=== PATIENT | male | born 1960 | race Caucasian/White ===

== ENCOUNTER 2017-02-25 08:58 | Emergency (ER) | payer BC ==
[~2017-02-25] VITALS: Ht 177.8 cm; Wt 82.0 kg
[~2017-02-25 08:58] MED LIST: CLIN-72 PO; TRAM100T2 PO
[2017-02-25 09:01] VITALS: Ht 177.8 cm; Wt 82.0 kg
--- NOTE | 2017-02-25 10:00 | RADRPT ---
PROCEDURE: CT Brain without contrast. CLINICAL INDICATION: Pain, headache TECHNIQUE: Routine CT scan of the brain was performed on a high resolution multi detector scanner without intravenous contrast. One or more of the following dose reduction techniques were used: Auto mated exposure control; Adjustment of the mA and/or kV according to patient size; Use of iterative r econstruction technique. CTDI = 44 mGy. DLP = 720 mGy-cm. COMPARISON: No prior relevant examinations are available for comparison. FINDINGS: Hemorrhage: No evidence of intracranial hemorrhage. Acute ischemic changes: No evidence of acute ischemic changes. Mass effect: None. Parenchymal volume: Within normal limits for age. Ventricular system: Concordant with parenchymal volume. Chronic changes: Parenchymal attenuation is within normal limits. Extracranial soft tissues: Unremarkable. Calvarium: No fractures. Paranasal sinuses: Visualized paranasal sinuses are clear. Mastoid air cells: Visualized mastoid air cells are clear. IMPRESSION: No acute intracranial abnormalities. Normal appearance of the brain parenchyma. RPTAT: AADD .Yao Narayanan MD, MD Date Time Electronically viewed and signed by .Yao Narayanan MD, MD on 02/25/2017 10:00 .B/
--- NOTE | 2017-02-25 12:56 | RADRPT ---
PROCEDURE: US Soft Tissue. CLINICAL INDICATION: Abnormal vision and eye pain. Evaluate for retinal detachment. TECHNIQUE: Berkowitz scale sonographic imaging of the right and left eyes was performed. COMPARISON: CT brain 02/25/2017. FINDINGS: The optic globes are normal in contour. Normal clear vitreous is seen, bilaterally. There are no a bnormal echoes. There is no displacement of membranes. The lens is normal, bilaterally. IMPRESSION: Normal bilateral ocular ultrasound. No evidence of retinal detachment. Ophthalmologic follow-up ad vised, as clinically indicated. RPTAT: HLST .Hoda Palacio MD, MD Date Time Electronically viewed and signed by .Hoda Palacio MD, MD on 02/25/2017 12:55 .T/
[2017-02-25] MEDS ORDERED: FIORICET PO (13:14)
[2017-02-25 13:46] VITALS: BP 126/76; PULSE 46; RESP 18
--- NOTE | 2017-02-25 15:20 | ERD ---
ER Documentation Chief Complaint Date/Time DATE: 02/25/17 TIME: 15:16 Chief Complaint RIGHT SIDED HEADACHE FOR 3 MONTHS WORSE X 10 DAYS, NO NEURO DEFICITS HPI 57-year-old male patient with no significant past medical history presents the ED complaining of a right-sided headache that is constant for the last 10 days. Patient describes the pain as sharp and rates it a 8 out of 10. States that he feels that he has some slight blurred vision. Reports that he has right- sided eye pain. Denies any lacrimation or rhinorrhea. Denies any trauma or loss of consciousness. Denies any seizures. Denies any weakness, numbness or tingling, chest pain, shortness of breath, nausea, vomiting, photophobia, phonophobia. ROS All systems reviewed and are negative except as per history of present illness. Medications Home Meds Active Scripts Acetamin/Butalbital/Caffeine* (Fioricet*) [id number] Tab, 1 TAB PO Q6H Y for PAIN, #30 TAB Prov:PAYTON VELEZ PA-C 02/25/17 Reported Medications Tramadol Hcl* (Tramadol* ER) 100 Mg Tab.er.24h, 50 MG PO Q8 Y 06/24/13 Clindamycin Hcl* (Clindamycin Hcl*) 150 Mg Capsule, 150 MG PO QID 06/24/13 Allergies Allergies: Coded Allergies: No Known Allergy (Unverified , 06/24/13) PMhx/Soc Medical and Surgical Hx: pt denies Medical Hx, pt denies Surgical Hx Hx Alcohol Use: No Hx Substance Use: No Hx Tobacco Use: No Smoking Status: Never smoker Physical Exam Vitals Vital Signs Date Time Temp Pulse Resp B/P Pulse Ox O2 Delivery O2 Flow Rate FiO2 02/25/17 13:46 46 18 126/76 99 Room Air 02/25/17 09:01 97.6 71 18 135/84 98 Physical Exam Const: [id number], well-nourished. In no acute distress. Head: Atraumatic, normocephalic Eyes: Normal Conjunctiva without injection. No purulent discharge. PERRLA. EOMI ENT: Normal external ear. Ear canal without erythema. Tympanic membrane pearly berkowitz without effusion or bulging. Nasal canal clear with normal turbinates. Moist oropharynx without tonsillar exudates. Non-erythematous pharynx. Uvula midline. No drooling. No trismus. Neck: No cervical midline tenderness. Full range of motion. No meningismus. No cervical lymphadenopathy. No JVD. Resp: Clear to auscultation bilaterally. No wheezing, rhonchi, rales, or crackles. No accessory muscle use. No retractions. Cardio: Regular rate and rhythm. No murmurs, rubs or gallops. Abd: Soft, non tender, non distended. Normal bowel sounds. No palpable masses. No rebound tenderness. No guarding. Negative McBurney's Point. Negative Desai's Sign. Skin: Normal skin turgor. No petechiae or rashes Back: No midline tenderness. No CVA tenderness. Ext: No cyanosis, or edema. Distal pulses intact bilaterally. Neur: Awake and alert. Normal gait. Normal coordination. Cranial Nerves II- VII intact. Normal finger to nose. Muscle strength 5/5. Sensation intact. Psych: Normal Mood and Affect Procedures/MDM This is a 57-year-old male patient with no significant past medical history presents the ED complaining of a right-sided headache that has been intermittently going on for the last 3 months and worse in the last 10 days associated with right eye pain and blurred vision. Patient is afebrile and nontoxic-appearing. Patient has normal vital signs. A CT of the brain without contrast, ultrasound of the soft tissue of the bilateral eyes, visual acuity was ordered to further evaluate patient. Patient's visual acuity was right 20/ 70, left 20/50, bilateral 20/70. CT of the brain shows no evidence of intracranial bleed. Low suspicion for seizures, subarachnoid hemorrhage, meningitis, TIA, stroke, subarachnoid hemorrhage, hematoma, epidural hematoma, or other emergent conditions. Soft tissue of the bilateral eyes shows no evidence of retinal detachment. A Landen-Pen was offered to be performed here in the ED however patient opted out and wanted to follow-up with an field observer tomorrow. He is strictly instructed to follow-up within 24 hours. PROCEDURE: CT Brain without contrast. CLINICAL INDICATION: Pain, headache TECHNIQUE: Routine CT scan of the brain was performed on a high resolution multi detector scanner without intravenous contrast. One or more of the following dose reduction techniques were used: Automated exposure control; Adjustment of the mA and/or kV according to patient size; Use of iterative reconstruction technique. CTDI = 44 mGy. DLP = 720 mGy-cm. COMPARISON: No prior relevant examinations are available for comparison. FINDINGS: Hemorrhage: No evidence of intracranial hemorrhage. Acute ischemic changes: No evidence of acute ischemic changes. Mass effect: None. Parenchymal volume: Within normal limits for age. Ventricular system: Concordant with parenchymal volume. Chronic changes: Parenchymal attenuation is within normal limits. Extracranial soft tissues: Unremarkable. Calvarium: No fractures. Paranasal sinuses: Visualized paranasal sinuses are clear. Mastoid air cells: Visualized mastoid air cells are clear. IMPRESSION: No acute intracranial abnormalities. Normal appearance of the brain parenchyma. PROCEDURE: US Soft Tissue. CLINICAL INDICATION: Abnormal vision and eye pain. Evaluate for retinal detachment. TECHNIQUE: Berkowitz scale sonographic imaging of the right and left eyes was performed. COMPARISON: CT brain 02/25/2017. FINDINGS: The optic globes are normal in contour. Normal clear vitreous is seen, bilaterally. There are no abnormal echoes. There is no displacement of membranes. The lens is normal, bilaterally. IMPRESSION: Normal bilateral ocular ultrasound. No evidence of retinal detachment. Ophthalmologic follow-up advised, as clinically indicated. EKG reviewed and interpreted by Dr. Bardales Rate/Rhythm: [46 bpm, Normal Sinus Rhythm] No ectopy, no ST elevations, normal axis. QRS, ST, T-waves: [No changes consistent w/ acute ischemia] Impression: [No evidence of ischemia or arrhythmia] Patient has bradycardia noted upon discharge, therefore an EKG was ordered. Patient does not have any chest pain or current dizziness. Low suspicion for symptomatic bradycardia, acute myocardial infarction, pneumothorax, pneumonia, cardiac tamponade, pulmonary embolism, AAA, aortic dissection, Boerhaave's syndrome, cardiac dysrhythmias,meningitis, intracranial bleed, seizure, stroke, TIA or other emergent conditions. Patient's ocular symptoms have stabilized while they have been evaluated in the department and are appropriate for outpatient work up. Low suspicion for ruptured globe, retinal detachment, periorbital cellulitis, acute angle closure glaucoma, deep space infection, iritis, traumatic hyphema, conjunctivitis, subconjunctival hemorrhage, corneal abrasion, corneal ulcer, pterygium, hypopyon, blepharitis, hordeolum, chalazion , or other emergent conditions. Strictly instructed patient to follow up with an field observer within 24 hours and primary care physician for a referral to neurologist, drill doctor. Instructed patient to return to the ED for any worsening symptoms. Patient is hemodynamically stable. Patient's questions were answered. Patient understood and agreed with discharge plan. Departure Diagnosis: Primary Impression: Headache Headache type: unspecified Headache chronicity pattern: unspecified pattern Intractability: not intractable Qualified Code: R51 - Nonintractable headache, unspecified chronicity pattern, unspecified headache type Condition: Stable Patient Instructions: Self-Care for Headaches, Headache, Unspecified Referrals: MILLY THEODORE MD (PCP) [facility] YOU HAVE RECEIVED A MEDICAL SCREENING EXAM AND THE RESULTS INDICATE THAT YOU DO NOT HAVE A CONDITION THAT REQUIRES URGENT TREATMENT IN THE EMERGENCY DEPARTMENT. FURTHER EVALUATION AND TREATMENT OF YOUR CONDITION CAN WAIT UNTIL YOU ARE SEEN IN YOUR DOCTORS OFFICE WITHIN THE NEXT 1-2 DAYS. IT IS YOUR RESPONSIBILITY TO MAKE AN APPOINTMENT FOR FOLOW-UP CARE. IF YOU HAVE A PRIMARY DOCTOR --you should call your primary doctor and schedule an appointment IF YOU DO NOT HAVE A PRIMARY DOCTOR YOU CAN CALL OUR PHYSICIAN REFERRAL HOTLINE AT IF YOU CAN NOT AFFORD TO SEE A PHYSICIAN YOU CAN CHOSE FROM THE FOLLOWING [facility] [address] [facility]. [facility] [address] [facility] [facility] [address] [facility] [facility] [address] [facility] [facility] [address] [facility]. [facility]. [address] [facility]. [facility] YOU HAVE RECEIVED A MEDICAL SCREENING EXAM AND THE RESULTS INDICATE THAT YOU DO NOT HAVE A CONDITION THAT REQUIRES URGENT TREATMENT IN THE EMERGENCY DEPARTMENT. FURTHER EVALUATION AND TREATMENT OF YOUR CONDITION CAN WAIT UNTIL YOU ARE SEEN IN YOUR DOCTORS OFFICE WITHIN THE NEXT 1-2 DAYS. IT IS YOUR RESPONSIBILITY TO MAKE AN APPOINTMENT FOR FOLOW-UP CARE. IF YOU HAVE A PRIMARY DOCTOR --you should call your primary doctor and schedule and appointment IF YOU DO NOT HAVE A PRIMARY DOCTOR YOU CAN CALL OUR PHYSICIAN REFERRAL HOTLINE AT . IF YOU CAN NOT AFFORD TO SEE A PHYSICIAN YOU CAN CHOSE FROM THE FOLLOWING [facility] INSTITUTIONS: [facility] [address] [place] [address] [facility] [address] [place] [address] [facility] + [facility] [address] [place] [address] [facility] Hours: Mon - Fri 9:00 AM - 5:00 PM Additional Instructions: FOLLOW UP WITH YOUR PRIMARY CARE PHYSICIAN TOMORROW for a referral to see a neurologist and opthalmologist within 24 hours. Return to this facility if you are not improving as expected. PAYTON VELEZ PA-C Feb 25, 2017 15:19
== END 2017-02-25 13:30 | disposition home or self-care (01) ==
LOC: FTE 08:58
DX: R51 Headache (principal); R00.1 Bradycardia, unspecified
CPT/HCPCS: 70450; 76536; 93005; Z7502

== ENCOUNTER 2018-07-19 01:38 | Inpatient (IN) | payer BC ==
[~2018-07-19] VITALS: Ht 175.3 cm; Wt 89.7 kg
[2018-07-19] VITALS (8 sets, daily range): BP systolic 108–139; BP diastolic 69–88; PULSE 54–79; RESP 18–20; Ht 175.3 cm; Wt 89.7 kg
[~2018-07-19 01:38] MED LIST changes: -CLIN-72 PO; +CLIN150C18 PO; +FIORICET PO; -TRAM100T2 PO; +TRAM100T33 PO
--- NOTE | 2018-07-19 01:55 | ERD ---
ER Documentation Chief Complaint Chief Complaint chest pain x 3 hours HPI This is a 58-year-old man complaining of substernal chest discomfort for the last 3 hours prior to arrival. He states he felt generally weak as well, symptoms began at rest but he had no shortness of breath. He denies dizziness or loss of consciousness, no cough, no fevers or chills, no vomiting or diarrhea. Patient used 81 mg of aspirin when his symptoms began and he states he has never had similar discomfort in the past. Patient quit smoking about 6 months ago. ROS All systems reviewed and are negative except as per history of present illness. Medications Home Meds Reported Medications Aspirin* (Aspirin*) 325 Mg Tablet, PO Q4 Days, TAB 07/19/18 Discontinued Reported Medications Tramadol Hcl* (Tramadol* ER) 100 Mg Tab.er.24h, 50 MG PO Q8 PRN 06/24/13 Clindamycin Hcl* (Clindamycin Hcl*) 150 Mg Capsule, 150 MG PO QID 06/24/13 Discontinued Scripts Acetamin/Butalbital/Caffeine* (Fioricet*) [id number] Tab, 1 TAB PO Q6H PRN for PAIN, #30 TAB Prov:PAYTON VELEZ PA-C 02/25/17 Allergies Allergies: Coded Allergies: No Known Allergy (Unverified , 06/24/13) PMhx/Soc Hx Alcohol Use: No Hx Substance Use: No Hx Tobacco Use: No FmHx Family History: No diabetes Physical Exam Vitals Vital Signs Date Temp Pulse Resp B/P (MAP) Pulse Ox O2 O2 Flow FiO2 Time Delivery Rate 07/19/18 61 16 155/92 97 Room Air 03:35 (113) 61 07/19/18 62 16 134/94 98 Room Air 01:58 (107) 07/19/18 97.2 66 18 156/81 98 01:42 (106) Physical Exam GENERAL: Well-developed, well-nourished, well-hydrated, in no apparent distress, looks nontoxic in appearance HEENT: Moist mucous membranes, pink conjunctiva, no cervical spine tenderness or step-off deformities, no goiter, no jaundice or icterus, extraocular movements intact without pain. No submandibular induration, and no pharyngeal erythema NEURO: Alert and oriented 3, cranial nerves II through XII intact bilaterally, pupils equal round reactive to light, no focal deficits or facial asymmetry, sensation intact distally Strength 5/5 in upper and lower extremities bilaterally CARDIAC: Regular rate and rhythm, no murmurs rubs or gallops LUNGS: Clear bilaterally no wheezing crackles or stridor ABDOMEN: Soft nontender, no guarding, no rigidity, no rebound, no psoas sign no obturator sign. Normoactive bowel sounds SKIN: Warm and dry to touch, no abrasions, contusions, or hematomas, no lacerations, no ecchymosis, no target lesions, and without ulcers EXTREMITIES: No clubbing cyanosis or edema, calves are bilaterally symmetrical, no Homans sign, no popliteal cord sign. Distal pulses equal and bilateral PSYCH: Normal affect without agitation or irritability Result Diagram: 07/19/1823907/19/18239 Results 24 hrs Laboratory Tests Test 07/19/18 02:40 White Blood Count 9.6 10^3/ul Red Blood Count 4.80 10^6/ul Hemoglobin 14.5 g/dl Hematocrit 42.1 % Mean Corpuscular Volume 87.7 fl Mean Corpuscular Hemoglobin 30.2 pg Mean Corpuscular Hemoglobin Concent 34.4 g/dl Red Cell Distribution Width 12.8 % Platelet Count 258 10^3/UL Mean Platelet Volume 10.2 fl Immature Granulocytes % 0.200 % Neutrophils % 59.3 % Lymphocytes % 27.8 % Monocytes % 9.8 % Eosinophils % 2.5 % Basophils % 0.4 % Nucleated Red Blood Cells % 0.0 /100WBC Immature Granulocytes # 0.020 10^3/ul Neutrophils # 5.7 10^3/ul Lymphocytes # 2.7 10^3/ul Monocytes # 0.9 10^3/ul Eosinophils # 0.2 10^3/ul Basophils # 0.0 10^3/ul Nucleated Red Blood Cells # 0.0 10^3/ul Sodium Level 139 mmol/L Potassium Level 4.0 mmol/L Chloride Level 104 mmol/L Carbon Dioxide Level 26 mmol/L Anion Gap 9 Blood Urea Nitrogen 20 mg/dl Creatinine 0.84 mg/dl Est Glomerular Filtrat Rate mL/min > 60 mL/min Glucose Level 109 mg/dl Calcium Level 9.5 mg/dl Total Bilirubin 0.2 mg/dl Direct Bilirubin 0.00 mg/dl Indirect Bilirubin 0.2 mg/dl Aspartate Amino Transf (AST/SGOT) 19 IU/L Alanine Aminotransferase (ALT/SGPT) 26 IU/L Alkaline Phosphatase 65 IU/L Troponin I < 0.012 ng/ml Total Protein 7.3 g/dl Albumin 4.5 g/dl Globulin 2.80 g/dl Albumin/Globulin Ratio 1.60 Lipase 97 U/L Current Medications Medications Dose Sig/Susanne Start Time Status Last (Trade) Ordered Route PRN Stop Time Admin Dose Reason Admin Aspirin 324 mg ONCE ONCE 07/19/18 DC 07/19/18 (Aspirin) PO 02:30 03:03 07/19/18 02:31 Alprazolam 0.5 mg ONCE ONCE 07/19/18 DC 07/19/18 (Xanax) PO 02:30 03:04 07/19/18 02:31 Sodium 500 ml @ Q1H STAT 07/19/18 DC 07/19/18 Chloride 500 mls/hr IV 02:30 03:03 07/19/18 03:29 40 ml ONCE STAT 07/19/18 DC 07/19/18 Miscellaneous PO 02:30 03:03 Medication 07/19/18 02:31 (Gi Cocktail (2)) Belladonna/ 2 tab ONCE STAT 07/19/18 DC 07/19/18 Phenobarbital PO 02:30 03:03 () 07/19/18 02:31 IV Flush 3 ml PER 07/19/18 (NS 3 ml) PROTOCOL IV 03:30 Ondansetron 4 mg Q6H PRN 07/19/18 HCl (Zofran IV NAUSEA 03:30 Inj) AND/OR VOMITING 1 tab Q5M PRN 07/19/18 Nitroglycerin SL CHEST 03:30 PAIN (Nitroglyceri n (Sl Tab) 0.4 Mg) 650 mg Q6H PRN 07/19/18 Acetaminophen PO PAIN 03:30 (Tylenol LEVEL 1-3 OR Tab) FEVER Docusate 100 mg Q12H PRN 07/19/18 Sodium PO 03:30 (Colace) CONSTIPATION Bisacodyl 5 mg DAILY PRN 07/19/18 (Dulcolax) PO 03:30 CONSTIPATION Procedures/MDM IV line was established patient was placed on compliance monitor rhythm strip revealed a sinus rhythm at about 60 bpm with upright P and T waves. Patient was afebrile EKG performed, read by me revealed a sinus bradycardia 55 bpm, normal axis, narrow QRS complex, no concerning ST elevations or depressions noted Chest X-ray 1V Interpreted by me: Soft Tissue: No acute abnormalities Bones: No acute abnormalities Mediastinum/Cardiac Silhouette/Lungs: No acute abnormalities I administered aspirin 324 mg p.o. for cardioprotective measures. Patient also received alprazolam 0.5 mg p.o. x1, 500 cc normal saline IV, and a GI cocktail CBC and electrolytes are normal, liver function tests were normal, troponin was negative Patient will be admitted to telemetry setting for continued medical management and cardiology consultation Departure Diagnosis: Primary Impression: Chest pain Chest pain type: unspecified Qualified Codes: R07.9 - Chest pain, unspecified Condition: PHILL Peng MD Jul 19, 2018 01:55
[2018-07-19] MEDS ORDERED: BELLADONNA/PHENOBARBITAL TAB PO STA (02:30)
[2018-07-19] MEDS ORDERED: LIDOCAINE/MYLANTA 40 ML BTL PO STA (02:30)
[2018-07-19] MEDS ORDERED: ALPRAZOLAM 0.25 MG TAB PO ONE (02:30)
[2018-07-19] MEDS ORDERED: SOD CHLORIDE 0.9% 500 ML IV STA (02:30)
[2018-07-19] MEDS ORDERED: ASPIRIN 81 MG TAB PO ONE (02:30)
--- NOTE | 2018-07-19 03:25 | HP ---
Date/Time of Note Date/Time of Note DATE: 07/19/18 TIME: 03:24 Assessment/Plan VTE Prophylaxis SCD applied (from Nsg): Yes Pharmacological prophylaxis: NA/contraindicated Pharm contraindication: low risk/ambulating Lines/Catheters IV Catheter Type (from Nrsg): Saline Lock Assessment/Plan Hospital Course This is a 58-year male being admitted to the telemetry floor for observation for: #1 chest pain: Rule out ACS versus anxiety: We will trend cardiac enzymes x3, the first that was negative. Will check an echocardiogram. PRN nitro. Will check hemoglobin A1c, lipid panel, TSH. Patient does report stress and anxiety as he recently lost his aunt so this could be contributing to the symptoms as well however we will rule him out for ACS. #2 borderline obesity: We will check hemoglobin A 1C, lipid panel, TSH #3 prostate issues: Follow-up outpatient with primary doctor, urology #4 DVT and GI prophylaxis: SCDs, no GI prophylaxis indicated Further treatment strategy will be implemented as per the clinical course Result Diagram: 07/19/18 0240 07/19/18 0240 Results 24hrs Laboratory Tests Test 07/19/18 02:40 White Blood Count 9.6 Red Blood Count 4.80 Hemoglobin 14.5 Hematocrit 42.1 Mean Corpuscular Volume 87.7 Mean Corpuscular Hemoglobin 30.2 Mean Corpuscular Hemoglobin Concent 34.4 Red Cell Distribution Width 12.8 Platelet Count 258 Mean Platelet Volume 10.2 Immature Granulocytes % 0.200 Neutrophils % 59.3 Lymphocytes % 27.8 Monocytes % 9.8 Eosinophils % 2.5 Basophils % 0.4 Nucleated Red Blood Cells % 0.0 Immature Granulocytes # 0.020 Neutrophils # 5.7 Lymphocytes # 2.7 Monocytes # 0.9 Eosinophils # 0.2 Basophils # 0.0 Nucleated Red Blood Cells # 0.0 Sodium Level 139 Potassium Level 4.0 Chloride Level 104 Carbon Dioxide Level 26 Anion Gap 9 Blood Urea Nitrogen 20 Creatinine 0.84 Est Glomerular Filtrat Rate mL/min > 60 Glucose Level 109 Calcium Level 9.5 Total Bilirubin 0.2 Direct Bilirubin 0.00 Indirect Bilirubin 0.2 Aspartate Amino Transf (AST/SGOT) 19 Alanine Aminotransferase (ALT/SGPT) 26 Alkaline Phosphatase 65 Troponin I < 0.012 Total Protein 7.3 Albumin 4.5 Globulin 2.80 Albumin/Globulin Ratio 1.60 Lipase 97 HPI/ROS Admit Date/Time Admit Date/Time Hx of Present Illness Chief complaint: Chest pain prior to arrival This is a 58-year-old male with prostate issues who presented today to the ER with symptoms of chest pressure. Patient reports that he was sitting and watching TV when the pressure started. It was nonradiating. He was not short of breath. He does report that he developed a headache and sweating which have now resolved.. the pain lasted approximately 1-2 hours and resolved when he arrived at the ED. he does report that he has been stressed lately as he lost his aunt who approximately 4 days ago, he was close to her. Allergies: NKDA Medications: See SEP ROS Const: As per HPI Eyes : No pain discharge or redness or change in visual acuity ENT: No pain, sore throat, congestion, congestion, dysphagia or discharge Respiratory: No shortness of breath, cough, sputum, wheezing, or pleuritic pain Cardiovascular: As per HPI GI : no change in appetite, abdominal pain, nausea, vomiting, diarrhea, constipation, or change in the color his stool Genitourinary: No dysuria, hematuria, flank pain , discharge or CVA tenderness Musculoskeletal: No joint pain, back pain, neck pain, restricted range of motion in neck or joints Skin: No rash, bruising or hives Neuro: As per HPI Endocrine: No polyuria, polydipsia, temperature intolerance Psych: As per HPI PMH/Family/Social Past Medical History Prostate issues Medications Current Medications Sodium Chloride 500 ml @ 500 mls/hr Q1H STAT IV Last administered on 07/19/18at 03:03; Admin Dose 500 MLS/HR; Start 07/19/18 at 02:30; Stop 07/19/18 at 03:29 IV Flush (NS 3 ml) 3 ml PER PROTOCOL IV ; Start 07/19/18 at 03:30; Status UNV Ondansetron HCl (Zofran Inj) 4 mg Q6H PRN IV NAUSEA AND/OR VOMITING; Start 07/19/18 at 03:30; Status UNV Aspirin (Aspirin) 81 mg DAILY PO ; Start 07/19/18 at 09:00; Status UNV Nitroglycerin (Nitroglycerin (Sl Tab) 0.4 Mg) 1 tab Q5M PRN SL CHEST PAIN; Start 07/19/18 at 03:30; Status UNV Acetaminophen (Tylenol Tab) 650 mg Q6H PRN PO PAIN LEVEL 1-3 OR FEVER; Start 07/19/18 at 03:30; Status UNV Docusate Sodium (Colace) 100 mg Q12H PRN PO CONSTIPATION; Start 07/19/18 at 03:30; Status UNV Bisacodyl (Dulcolax) 5 mg DAILY PRN PO CONSTIPATION; Start 07/19/18 at 03:30; Status UNV Enoxaparin Sodium (Lovenox) 40 mg DAILY SC ; Start 07/19/18 at 09:00; Status UNV Coded Allergies: No Known Allergy (Unverified , 06/24/13) Past Surgical History Past Surgical Hx: no surgical history Family History Significant Family History: no pertinent family hx Social History Alcohol Use: none Smoking Status: Former smoker (He quit 5 months ago, he was previously a heavy smoker of approximately 35 years) Drug Use: none Exam/Review of Systems Vital Signs Vitals Vital Signs Date Temp Pulse Resp B/P (MAP) Pulse Ox O2 O2 Flow FiO2 Time Delivery Rate 07/19/18 62 16 134/94 98 Room Air 01:58 (107) 07/19/18 97.2 01:42 Exam Exam General: Patient is a pleasant male currently lying in bed in no acute distress HEENT: Atraumatic, normocephalic. The pupils are equal, round and reactive. Extraocular motor are intact Neck: Supple with full range of motion. No rigidity or meningismus Chest: Nontender to palpation Lungs: Clear to auscultation bilaterally no crackles rales or wheezing Heart: Normal S1-S2, Regular rhythm and rate. No overt murmurs appreciated on auscultation Abdomen: Soft , nontender, nondistended , bowel sounds are present. No guarding no rebound tenderness , No masses or organomegaly. No costovertebral temporal angle mass Extremities: Normal to inspection, no edema no cyanosis Neurologic: Normal mental status, speech normal, cranial nerves II through XII are intact, motor and sensory are intact, no focal weakness Psych: Appears pleasant at the current time, does not appear anxious Additional Comments PROCEDURE: XR Chest. CLINICAL INDICATION: Abdominal pain TECHNIQUE: AP Portable chest. COMPARISON: CR CHEST 06/23/2013 FINDINGS: The cardiomediastinal silhouette is normal.The aortic arch is calcified. No focal consolidation, pleural effusion or pneumothorax is seen. The osseous structures are intact. IMPRESSION: No radiographic evidence of acute cardiopulmonary disease. [facility] Lucia Bejarano Physician Date Time Electronically viewed and signed by Lucia Bejarano Physician on 07/19/2018 04:33 CS/ CC: PHILL MARSHALL MD [phone] sinus bradycardia 55 bpm, normal axis, narrow QRS complex, no concerning ST elevations or depressions noted Telemetry: Normal Hamida rhythm at approximately 62 bpm VLADIMIR CASTANON Jul 19, 2018 03:25
[2018-07-19] MEDS ORDERED: DOCUSATE SODIUM 100 MG CAP PO PRN (03:30)
[2018-07-19] MEDS ORDERED: NITROGLYCERIN (SL) 0.4 MG TAB SL PRN (03:30)
[2018-07-19] MEDS ORDERED: BISACODYL (EC) 5 MG TAB PO PRN (03:30)
[2018-07-19] MEDS ORDERED: ACETAMINOPHEN 325 MG TAB PO PRN (03:30)
[2018-07-19] MEDS ORDERED: ONDANSETRON 4 MG INJ IV PRN (03:30)
[2018-07-19] MEDS ORDERED: NACL 0.9% 3 ML SYG IV SCH (03:30)
[2018-07-19] MEDS ORDERED: ASPI325T30 PO (04:37)
[2018-07-19] MEDS ORDERED: ASPIRIN 81 MG TAB PO SCH (09:00)
[2018-07-19] MEDS ORDERED: ENOXAPARIN 40 MG/0.4 ML SYG SC SCH (09:00)
[2018-07-19] MEDS ORDERED: ATOR20TA38 PO (15:26)
[2018-07-19] MEDS ORDERED: ASPI-817 PO (15:26)
--- NOTE | 2018-07-19 16:56 | PDOCDIS ---
Discharge Instructions CONDITION [id number] Patient Condition: [id number] Stable HOME CARE INSTRUCTIONS: [id number] Diet Instructions: [id number] Low Fat /Cholesterol OTHER ORDERS: Other Orders: 1. Start taking aspirin and Lipitor because of your high cholesterol and to reduce risk for heart attacks/stroke. 2. Follow a low-cholesterol diet. 3. Resume activities as tolerated. 4. Follow-up with your primary care physician 1 month. 5. Please go to the nearest emergency room if you have any chest pain, shortness of breath, or any other unusual signs/symptoms. TENZIN LANE NP Jul 19, 2018 16:56
--- NOTE | 2018-07-19 16:58 | DS ---
Discharge Summary Admission/Discharge Info Discharge Date/Time Home Meds Active Scripts Atorvastatin Calcium* (Atorvastatin Calcium*) 20 Mg Tablet, 20 MG PO QHS, #30 TAB Prov:TENZIN LANE NP 07/19/18 Aspirin* (Aspirin* EC) 81 Mg Tablet.dr, 81 MG PO DAILY, #30 TAB Prov:TENZIN LANE NP 07/19/18 Discontinued Reported Medications Aspirin* (Aspirin*) 325 Mg Tablet, PO Q4 Days, TAB 07/19/18 Tramadol Hcl* (Tramadol* ER) 100 Mg Tab.er.24h, 50 MG PO Q8 PRN 06/24/13 Clindamycin Hcl* (Clindamycin Hcl*) 150 Mg Capsule, 150 MG PO QID 06/24/13 Discontinued Scripts Acetamin/Butalbital/Caffeine* (Fioricet*) [id number] Tab, 1 TAB PO Q6H PRN for PAIN, #30 TAB Prov:PAYTON VELEZ PA-C 02/25/[address]ENZIN L[address] NP Jul 19, 2018 16:58
--- NOTE | 2018-07-19 17:02 | DS ---
Date/Time of Note Date/Time of Note DATE: 07/19/18 TIME: 17:02 Discharge Summary Admission/Discharge Info Admit Date/Time Jul 19, 2018 at 03:53 Discharge Date/Time Discharge Diagnosis 1. Atypical chest pain. 2. Dyslipidemia. 3. Prostate hypertrophy. Patient Condition: Stable Procedures 2D Echocardiogram Conclusions Normal left ventricular systolic function. Normal left ventricular cavity size. Normal left ventricular wall thickness. Ejection fraction is visually estimated at 55 %. Tissue Doppler/Mitral Doppler indices are within normal limits. Mild aortic valve regurgitation. Unable to obtain RVSP due to minimal presence of tricuspid regurgitation. Normal size and normal respiratory collapse consistent with normal right atrial pressure. CXR IMPRESSION: No radiographic evidence of acute cardiopulmonary disease. Hx of Present Illness This is a 58-year-old male with no significant past medical history other than prostate hypertrophy, not on any medications at home. He came to the emergency room with chief complaint of chest pain. The pain was in the mid chest with no associated radiation. The patient verbalized the pain lasted for approximately 1-2 hours. Hospital Course The patient was admitted to inpatient setting. Serial troponins were ordered. A 2D echocardiogram was ordered. The patient is a 3 set of troponins remain negative. The patient's a chest pain was atypical. Patient also had a recent family loss and this might have been contributing to the patient's chest pain episode secondary to anxiety. The patient was evaluated for other risk factors including any underlying diabetes. The patient's hemoglobin A1c was found to be 5.3. However, the patient was noticed to have dyslipidemia with elevated triglycerides and elevated total cholesterol with suboptimal HDL. Therefore, the patient was started on aspirin and a low-dose Lipitor because the patient's cardiovascular risk assessment for 10-year cardiovascular disease is 18.15. The patient used to be a smoker. However, he quit smoking recently. The patient was encouraged to abstain from using nicotine products. The patient's blood pressure during the hospital course was a relatively stable and did not show any evidence of any hypertension. The patient was ruled out for any underlying acute coronary syndrome. The patient is stable to be discharged home, to be followed up with outpatient information systems consultant. Discharge instructions 1. Start taking aspirin and Lipitor because of your high cholesterol and to reduce risk for heart attacks/stroke. 2. Follow a low-cholesterol diet. 3. Resume activities as tolerated. 4. Follow-up with your primary care physician 1 month. 5. Please go to the nearest emergency room if you have any chest pain, shortness of breath, or any other unusual signs/symptoms. The patient verbalized understanding of his discharge instructions. The patient was seen in collaboration with Dr. Gonzáles. Home Meds Active Scripts Atorvastatin Calcium* (Atorvastatin Calcium*) 20 Mg Tablet, 20 MG PO QHS, #30 TAB Prov:TENZIN LANE COURT MESSENGER 07/19/18 Aspirin* (Aspirin* EC) 81 Mg Tablet.dr, 81 MG PO DAILY, #30 TAB Prov:TENZIN LANE COURT MESSENGER 07/19/18 Discontinued Reported Medications Aspirin* (Aspirin*) 325 Mg Tablet, PO Q4 Days, TAB 07/19/18 Tramadol Hcl* (Tramadol* ER) 100 Mg Tab.er.24h, 50 MG PO Q8 PRN 06/24/13 Clindamycin Hcl* (Clindamycin Hcl*) 150 Mg Capsule, 150 MG PO QID 06/24/13 Discontinued Scripts Acetamin/Butalbital/Caffeine* (Fioricet*) [id number] Tab, 1 TAB PO Q6H PRN for PAIN, #30 TAB Prov:PAYTON VELEZ PA-C 02/25/17 Follow-up Plan Please follow-up with your primary care physician in 1 month. Primary Care Provider Arturo Alberto MD Time spent on discharge: > 30 minutes Pending Labs Laboratory Tests Test 07/19/18 02:40 07/19/18 08:17 07/19/18 14:14 White Blood Count 9.6 10^3/ul (4.8-10.8) Red Blood Count 4.80 10^6/ul (4.70-6.10) Hemoglobin 14.5 g/dl (14.0-18.0) Hematocrit 42.1 % (42.0-52.0) Mean Corpuscular 87.7 Volume fl (82.0-101.0) Mean Corpuscular 30.2 pg (29.0-33.0) Hemoglobin Mean Corpuscular 34.4 Hemoglobin Concent g/dl (32.0-37.0) Red Cell 12.8 % (11.5-14.5) Distribution Width Platelet Count 258 10^3/UL (140-415) Mean Platelet 10.2 fl (7.4-10.4) Volume Immature 0.200 Granulocytes % % (0.001-0.429) Neutrophils % 59.3 % (39.0-77.0) Lymphocytes % 27.8 % (15.0-51.0) Monocytes % 9.8 % (0.0-11.0) Eosinophils % 2.5 % (0.0-7.0) Basophils % 0.4 % (0.0-2.0) Nucleated Red Blood 0.0 Cells % /100WBC (0.0-0.0) Immature 0.020 Granulocytes # 10^3/ul (0.0-0.031) Neutrophils # 5.7 10^3/ul (1.6-7.5) Lymphocytes # 2.7 10^3/ul (0.8-2.9) Monocytes # 0.9 10^3/ul (0.3-0.9) Eosinophils # 0.2 10^3/ul (0.0-0.5) Basophils # 0.0 10^3/ul (0.0-0.1) Nucleated Red Blood 0.0 Cells # 10^3/ul (0.0-0.0) Sodium Level 139 mmol/L (135-144) Potassium Level 4.0 mmol/L (3.5-5.1) Chloride Level 104 mmol/L (97-110) Carbon Dioxide 26 mmol/L (21-31) Level Anion Gap 9 (5-13) Blood Urea 20 mg/dl (7-20) Nitrogen Creatinine 0.84 mg/dl (0.61-1.24) Est Glomerular > 60 mL/min (>60) Filtrat Rate mL/min Glucose Level 109 mg/dl (70-220) Calcium Level 9.5 mg/dl (8.4-10.2) Total Bilirubin 0.2 mg/dl (0.2-1.3) Direct Bilirubin 0.00 mg/dl (0.00-0.20) Indirect Bilirubin 0.2 mg/dl (0-1.1) Aspartate Amino 19 IU/L (15-46) Transf (AST/SGOT) Alanine 26 IU/L (13-69) Aminotransferase (A LT/SGPT) Alkaline 65 IU/L (42-121) Phosphatase Troponin I < 0.012 < 0.012 < 0.012 ng/ml (0.000-0.120) ng/ml (0.000-0.120 ng/ml (0.000-0.120 ) ) Total Protein 7.3 g/dl (6.1-8.1) Albumin 4.5 g/dl (3.3-4.9) Globulin 2.80 g/dl (1.3-3.2) Albumin/Globulin 1.60 Ratio Lipase 97 U/L (23-300) Creatine Kinase 51 IU/L (23-200) 52 IU/L (23-200) Creatine Kinase 0.8 0.7 Index Creatinine Kinase 0.42 0.36 MB (Mass) ng/ml (0.0-2.4) ng/ml (0.0-2.4) Hemoglobin A1c 5.3 % (0-5.9) Triglycerides 179 mg/dl (0-149) Level Cholesterol Level 234 mg/dl (100-200) LDL Cholesterol, 163 mg/dl Calculated HDL Cholesterol 35 mg/dl (28-71) Cholesterol/HDL 6.[address] NP Jul 19, 2018 17:02
--- NOTE | 2018-07-19 17:02 | RADRPT ---
Echocardiogram Report Patient Name: PERFECTO GONZALEZ Gender: Male Date: 1960 Study Date: 19-Jul-2018 [employer] Worker: Bennie Moncada RDCS Location: [id number] Ref. Physician: VLADIMIR CASTANON Quality: Adequate Procedures: Transthoracic echocardiogram with complete 2D, M-Mode, and doppler examination. Indications: Chest Pain. 2D/M Mode Doppler Measurement Value Normal Ranges Measurement Value Normal Ranges LVIDd 2D 3.6 3.5 - 5.6 cm AV Peak Kristian 1.5 m/sec LVIDs 2D 2.5 2.1 - 4.1 cm AV Peak PG 9.0 mmHg FS 2D 30.7 % LVOT Peak Kristian 1.2 m/sec LVPWd 2D 0.9 0.6 - 1.1 cm LVOT Peak PG 5.0 mmHg IVSd 2D 1.0 0.6 - 1.1 cm MV E Peak Kristian 0.9 m/sec IVS/LVPW 2D 1.0 MV A Peak Kristian 0.7 m/sec AoR Diam 2D 2.6 2.0 - 3.7 cm MV E/A 1.3 LA/Ao 2D 1 0 - 1 MV Decel Time 211 msec EDV 2D 47.4 cm3 MV E/A 1.3 ESV 2D 15.8 cm3 LA Dimen 2D 2.6 2.3 - 4.0 cm Findings Left Ventricle: Normal left ventricular systolic function. Normal left ventricular cavity size. Normal left ventricular wall thickness. Ejection fraction is visually estimated at 55 %. Tissue Doppler/Mitral Doppler indices are within normal limits. Right Ventricle: Normal right ventricular size. Normal right ventricular systolic function. Left Atrium: The left atrium is normal in size. Right Atrium: The right atrium is normal in size. Mitral Valve: Normal appearance of the mitral valve. Trace mitral regurgitation. Aortic Valve: Normal appearance of the aortic valve. Mild aortic valve regurgitation. Tricuspid Valve: Normal appearance of the tricuspid valve. Unable to obtain RVSP due to minimal presence of tricuspid regurgitation. There is trace tricuspid regurgitation. Pulmonic Valve: Normal pulmonic valve appearance. No evidence of pulmonic regurgitation. Pericardium: Normal pericardium with no significant pericardial effusion. Aorta: Normal aortic root. IVC: Normal size and normal respiratory collapse consistent with normal right atrial pressure. Conclusions Normal left ventricular systolic function. Normal left ventricular cavity size. Normal left ventricular wall thickness. Ejection fraction is visually estimated at 55 %. Tissue Doppler/Mitral Doppler indices are within normal limits. Mild aortic valve regurgitation. Unable to obtain RVSP due to minimal presence of tricuspid regurgitation. Normal size and normal respiratory collapse consistent with normal right atrial pressure. Electronically Signed By: Shadi Jones 19-Jul-2018 17:01:08 0800 Patient Name: PERFECTO GONZALEZ Study Date: 19-Jul-2018 [id number]
== END 2018-07-19 17:15 | disposition home or self-care (01) | DRG 313 ==
LOC: E/R 01:38 → TEL 03:53
PROVIDERS: ADMIT Family Medicine; ATTEND Family Medicine
DX: R07.89 Other chest pain (principal); E78.5 Hyperlipidemia, unspecified; N40.0 Benign prostatic hyperplasia without lower urinary tract symptoms
CPT/HCPCS: 36415; 71045; 80053; 80061; 82550; 82553; 83036; 83690; 84484; 85025; 93005; 93306; J1650; J7040